=== PATIENT | female | born 1950 | race Caucasian/White ===

== ENCOUNTER → 2017-12-27 | Outpatient (CLI) | payer BC, OTHER ==
[~2017-12-27] MED LIST: ALL180 PO; CALC-51 PO; CYAN100T PO; DIGESTIVE ENZYME PO; FLAX SEED OIL PO; LRT5 PO; MOME50SP5; MULT-513 PO; PSYL55.43 PO; [UNRECOGNIZED DRUG - CODE] PO
== END | disposition home or self-care (01) ==
LOC: C.RDSM 15:19
PROVIDERS: ATTEND Orthopaedic Surgery Sports Medicine
DX: M25.561 Pain in right knee (principal); M25.562 Pain in left knee; M17.0 Bilateral primary osteoarthritis of knee

== ENCOUNTER 2022-05-25 07:55 | Observation (INO) ==
--- NOTE | 2022-05-10 09:28 | PAT Medication Instructions ---
Medication Instructions Date of Service May 10, 2022 Home Medications Medication Instructions Recorded mupirocin 2 % topical ointment 1 applic topical BID #15 grams 07/24/21 ofloxacin 0.3 % ear drops 5 drp otic (ear) BID #5 mL 07/24/21 aspirin 81 mg tablet,delayed release (Aspir-) 81 mg PO QAM atorvastatin 40 mg tablet 40 mg PO HS furosemide 40 mg tablet (Lasix) 40 mg PO QAM lisinopril 20 mg tablet 20 mg PO PM multivitamin 1 tab PO QPM fexofenadine 180 mg tablet 180 mg PO QAM mupirocin 2 % topical ointment 1 applic topical BID ofloxacin 0.3 % ear drops 5 drp otic (ear) BID acetaminophen 500 mg capsule 1,000 mg PO Q6H PRN Pain amoxicillin 875 mg tablet 875 mg PO BID magnesium 250 mg tablet 250 mg PO QPM Continue as directed amoxicillin 875 mg tablet 875 mg PO BID STOP taking 24 hours before surgery mupirocin 2 % topical ointment 1 applic topical BID DO NOT take the morning of surgery furosemide 40 mg tablet (Lasix) 40 mg PO QAM fexofenadine 180 mg tablet 180 mg PO QAM Take morning of surgery With a small sip of water, OTHERWISE NOTHING TO EAT OR DRINK AFTER MIDNIGHT: aspirin 81 mg tablet,delayed release (Aspir-) 81 mg PO QAM (continue as normal unless told otherwise by surgeon) ofloxacin 0.3 % ear drops 5 drp otic (ear) BID acetaminophen 500 mg capsule 1,000 mg PO Q6H PRN Pain (if needed) Take evening before surgery atorvastatin 40 mg tablet 40 mg PO HS lisinopril 20 mg tablet 20 mg PO PM multivitamin 1 tab PO QPM ofloxacin 0.3 % ear drops 5 drp otic (ear) BID acetaminophen 500 mg capsule 1,000 mg PO Q6H PRN Pain (if needed) magnesium 250 mg tablet 250 mg PO QPM Other Notes If you have any questions please call us at [phone] or [phone] or [phone] or [phone]
--- NOTE | 2022-05-11 14:54 | Anesthesiology Consultation ---
Date of Service May 11, 2022 Assessment & Plan (1) Encounter for pre-operative examination: - pt reports severe respiratory distress when around individuals wearing cologne, perfume or scented lotion Mine with OR aware, marked on OR sheet. - potential difficult intubation: TMD < 3 finger breadths, Mallampati 3. - awaiting upcoming PCP pre-op appt 05/19/22. - Outpatient joint assessment: Patient is currently scheduled for inpatient pathway. If re-evaluated pending system levels during current pandemic/surgeon requests outpatient pathway, patient is NOT acceptable candidate for outpatient joint program from anesthesia standpoint. Chart Review Chart Review: Pending: Refer to Additional Notes / Consult section and Patient seen in Pre Admission Testing Teaching & Discussion Pre-Anesthesia Teaching/Discussion Notes: Instructed NPO after midnight before surgery, except medications with 15 cc of water. Medication instructions provided according to the PAT guidelines. History Surgery Operation Date: 05/25/22 10:15 Proposed Procedures p Right Total Knee Arthroplasty - Nguyễn Janey Eastman MD Height/Weight Height: 5 ft 1.5 in Weight: 117.934 kg Allergies Allergy/AdvReac Type Severity Reaction Status Date / Time perfume Allergy Severe Difficulty Verified 05/10/22 07:59 Breathing house dust mite Allergy Intermediate Sneezing Verified 05/10/22 07:59 mold Allergy Intermediate Sneezing Verified 05/10/22 07:59 adhesive AdvReac Mild BANDAIDS - Verified 05/10/22 07:59 MAKE SKIN RAW pineapple AdvReac Mild TONGUE SORE Verified 05/10/22 07:59 Medications Home Medications Medication Instructions Recorded Confirmed Last Taken aspirin 81 mg tablet,delayed 81 mg PO QAM 12/21/19 05/10/22 12/20/19 release (Aspir-) atorvastatin 40 mg tablet 40 mg PO HS 12/21/19 05/10/22 12/27/19 21:00 furosemide 40 mg tablet (Lasix) 40 mg PO QAM 12/21/19 05/10/22 12/27/19 06:00 lisinopril 20 mg tablet 20 mg PO PM 12/21/19 05/10/22 12/27/19 21:00 multivitamin 1 tab PO QPM 12/21/19 05/10/22 12/27/19 06:00 fexofenadine 180 mg tablet 180 mg PO QAM 07/04/20 05/10/22 Unknown mupirocin 2 % topical ointment 1 applic topical BID #15 grams 07/24/21 05/10/22 Unknown ofloxacin 0.3 % ear drops 5 drp otic (ear) BID #5 mL 07/24/21 05/10/22 Unknown acetaminophen 500 mg capsule 1,000 mg PO Q6H PRN Pain 05/10/22 05/10/22 Unknown amoxicillin 875 mg tablet 875 mg PO BID 05/10/22 05/10/22 Unknown magnesium 250 mg tablet 250 mg PO QPM 05/10/22 05/10/22 Unknown Past Medical History Medical History (Updated 05/12/22 @ 08:49 by Jackelin Rain PA-C) 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 GERD (gastroesophageal reflux disease) controlled, stable per pt History of COVID-19 BEGINNING OF APRIL [id number] hospitalized-fully resolved History of uterine cancer SURGERY ONLY Hyperlipidemia Hypertension controlled, stable per pt Obstructive sleep apnea CPAP-compliant Pulmonary nodule evaluated by [facility] pulm 04/07/21, advised no further surveillance needed and to f/u prn Stroke MAR 2018> NO RESIDUAL EFFECTS > JUST FOLLOWS PCP Patient denies h/o seizures, heart attack, heart failure, DM, blood clots or blood transfusions. Exercise / Class Metabolic Activity III < 4 Walking/Shop/Light housework (6 steps in home, denies CP or SOB with those steps) Past Family History Family History Mother Hypertension Heart disease Father Hypertension Heart disease Other No family history of adverse response to anesthesia No family history of bleeding disorder Past Surgical History Surgical History (Updated 05/11/22 @ 15:19 by Jackelin Rain PA-C) History of cholecystectomy History of colonoscopy History of endoscopic sinus surgery 12/28/1920 Grade 2 view with cricoid pressure, MAC 3, ETT 7.5. History of hysterectomy History of myringotomy History of tonsillectomy and adenoidectomy History of tooth extraction Hx of surgical procedure TO SHORTEN TONGUE IN BACK S/P correction of deviated nasal septum Past Anesthesia History No Hx of Anesthesia Complications and No Family Hx of Anesthesia Complications History of PONV No Hx of PONV and Hx of Motion Sickness Social History Smoking Status: Never smoker Do You Dip or Chew Tobacco: No Hx Alcohol Use: No Hx Substance Use: No substance use type: does not use Review of Systems Patient denies chest pain, shortness of breath, dyspnea on exertion, fever, chills, cough, wheezing, or palpitations. Physical Exam Vital Signs Vitals BP 120/71 P 91 TEMP 98.2 SP02 98% on RA RESP 17 Physical Large, thick neck Full cervical extension range of motion without pain TMD < 3 finger breadths Mallampati Score 3 Dentition: intact, several caps/crowns, permanent bridges lower sides bilat; denies chipped or loose teeth, or implants Lungs: normal respiratory effort. Clear throughout to auscultation, no adventitious breath sounds Cardiac: regular rate and rhythm, no murmurs noted Carotid arteries: negative bruit bilat Lab Results Anesthesia Preop Results Results Anesthesia Widget: WBC 8.01 K/ul (4.8-10.8) 05/11/22 Hgb 13.5 g/dl (12.0-16.0) 05/11/22 Hct 40.0 % (34.1-44.9) 05/11/22 Plt 167 K/uL (130-400) 05/11/22 Na 140 mmol/L (136-145) 05/11/22 K 3.6 mmol/L (3.5-5.1) 05/11/22 Cl 107 mmol/L (98-107) 05/11/22 CO2 30 mmol/L (21-32) 05/11/22 BUN 24 mg/dl (6-23) H 05/11/22 Creat 0.85 mg/dl (0.6-1.2) 05/11/22 Glucose Level 130 mg/dl (70-99(Fasting)) H 05/11/22 PT 11.4 Seconds (9.0-12.0) 05/11/22 PTT 29.3 Seconds (21.0-31.0) 05/11/22 INR 1.1 (0.9-1.1) 05/11/22 Urine Color Yellow 05/11/22 Urine Appearance Clear (Clear) 05/11/22 Urine pH 5.5 (4.5-7.5) 05/11/22 Urine Specific [place] 1.028 (1.000-1.030) 05/11/22 Urine Protein Negative (Negative) 05/11/22 Urine Glucose (UA) Negative (Negative) 05/11/22 Urine Ketones Trace (Negative) H 05/11/22 Urine Blood Negative (Negative) 05/11/22 Urine Nitrite Negative (Negative) 05/11/22 Urine Bilirubin Negative (Negative) 05/11/22 Urine Urobilinogen Negative (Negative) 05/11/22 Urine Leukocyte Esterase Negative (Negative) 05/11/22 Blood Type A Negative 05/11/22 Antibody Screen NEGATIVE 05/11/22 Testing Electrocardiogram Date: 05/11/22 NSR, rate 87 bpm Chest X-Ray Date: 05/11/22 There are low lung volumes. Small linear scarlike density within the left midlung zone. Otherwise, no focal lung consolidations to suggest a pneumonia. No evidence for pulmonary edema. The cardiac silhouette is borderline enlarged. This may be accentuated by the low lung volumes. Prior cholecystectomy. IMPRESSION: No acute process. COVID-19 Risk Screen Screening Information COVID-19 Screen Date: 05/11/22 Exposure 21 Days Family/Household +COVID Last 21 Days: No Exposure 10 Days Any COVID Exposure Last 10 Days: No Symptoms Last 10 Days Experienced COVID Sx Last 10 Days: No + COVID 0-90 Days COVID + in Last 0-90 Days: Yes + COVID Test 0-10 Day: No + COVID Test 11-90 Day: Yes Date/Place of COVID-19 Test: + home test 04/2022. Symptoms resolved. PCR at [facility] appt 05/11/22:
[~2022-05-25 07:55] MED LIST changes: +ACETAMINOPHEN 500 MG TAB PO SCH; -ALL180 PO; +BUPIVACAINE 0.25% 30 ML VIAL ONE; +BUPIVACAINE 0.5 % 5 MG/1 ML PF 10ML VIAL ONE; -CALC-51 PO; -CYAN100T PO; +CeleBREX 200 MG CAP PO SCH; -DIGESTIVE ENZYME PO; -FLAX SEED OIL PO; +LIDOCAINE 2% 2 ML VIAL/AMP(20MG/ML) INFIL ONE; +LR 500ML BOLUS, THEN 15ML/HR IV SCH; +LR 60ML/HR IV SCH; -LRT5 PO; +MIDAZOLAM HCL 1 MG/ML 2ML VIAL ONE; -MOME50SP5; -MULT-513 PO; +ONDANSETRON INJ 2 MG/ML 2 ML VIAL ONE; +PROPOFOL IV EMULSION 10 MG/ML 20 ML VIAL IV ONE; -PSYL55.43 PO; +ROPIVACAINE 0.5% 5 MG/ML 30 ML VIAL ONE; +ROPIVACAINE 0.5% HCL/PF 150 MG, BUPIVACAINE 0.75% MPF 20 ML, EPINEPHrine 0.15 MG, Ketor... INFIL SCH; +Scopolamine 1 MG TDSY TD SCH; +TRANEXAMIC ACID 1,000 MG **IV Intra-op IV SCH; +TRANEXAMIC ACID 1,000 MG **IV Pre-op IV SCH; -[UNRECOGNIZED DRUG - CODE] PO; +ceFAZolin 2000MG 2,000 MG/15 ML SYR IV SCH
[2022-05-25] MEDS ORDERED: ePHEDrine sulfate 50 MG/ML AMP IV PRN (09:07)
[2022-05-25] MEDS ORDERED: ONDANSETRON INJ 2 MG/ML 2 ML VIAL IV PRN ×2 (09:07→14:47)
[2022-05-25] MEDS ORDERED: ATROPINE SULFATE 0.1 MG/ML 10ML SYR IV PRN (09:07)
--- NOTE | 2022-05-25 09:17 | History & Physical Bridge Note ---
Date of Service May 25, 2022 History & Physical Bridge Note I have examined the patient, reviewed the History & Physical and in the interval since the performance of the History & Physical I have noted the following changes of clinical significance: no changes noted Patient is aware of the risks, is asymptomatic, and tested negative for COVID- 19.
[2022-05-25] MEDS ORDERED: ORTHO JOINT ANESTHETIC ONE (09:30)
[2022-05-25] MEDS ORDERED: KETAMINE 50 MG/5 ML SYRINGE ONE (10:05)
[2022-05-25] MEDS ORDERED: PHENYLEPHRINE HCL 10 MG/ML VIAL ONE (10:34)
[2022-05-25] MEDS ORDERED: ALBUMIN HUMAN 5% 12.5 GM/250 ML VIAL IV ONE (10:58)
[2022-05-25] MEDS ORDERED: PROPOFOL IV EMULSION 10 MG/ML 20 ML VIAL IV ONE ×2 (11:19→11:59)
--- NOTE | 2022-05-25 12:16 | Post Operative Brief Note ---
Immediate Post Op Note v1 Date of Surgery May 25, 2022 Pre & Post Diagnosis Operation Date: 05/25/22 10:15 Pre-Op Diagnosis: Right Knee Osteoarthritis Post-Op Diagnosis: Right Knee Osteoarthritis I identified the patient and participated in the time-out.: Yes Procedure Operation Date: 05/25/22 10:15 Actual Procedures p Right Total Knee Arthroplasty, Cemented(Right) - Nguyễn Eastman MD Surgeon Nguyễn Eastman MD Environmental Emergencies Planner Dany Martinez PA-C (No fellow avail) Estimated Blood Loss 175 Findings Consistent with Post-Op Diagnosis Fluids 500 cc Albumin & 1700 cc Crystalloid Specimens Right knee Contents Anesthesia Type MAC Spinal Regional Complications none
--- NOTE | 2022-05-25 12:18 | Operative Report ---
Post Operative Report Pre & Post Diagnosis Operation Date: 05/25/22 10:15 Pre-Op Diagnosis: Right Knee Osteoarthritis Post-Op Diagnosis: Right Knee Osteoarthritis I identified the patient and participated in the time-out.: Yes Procedure Operation Date: 05/25/22 10:15 Actual Procedures p Right Total knee replacement, imageless computer assisted navigation - Nguyễn Eastman MD Surgeon Nguyễn Eastman MD Delivery Tech Dany Martinez PA-C (No fellow avail) Estimated Blood Loss 175 Findings See Below Examined Under Anesthesia: ROM -- There was 0 degrees to 100 degrees of flexion Ligamentous examination -- revealed stable Leander, posterior drawer, varus and valgus stress at 0 and 30 degrees. Outerbridge Type IV changes of Tricompartment. Fluids 500 cc Albumin & 1700 cc Crystalloid Specimens Right knee Contents Drains n/a Anesthesia Type MAC Spinal Regional Complications none Indications This is a 71-year-old female who has clinical and radiographic findings consistent with osteoarthritis of the a right knee. I recommended that a right total knee replacement be performed. The patient understands the risks of surgery, which include but not limited to: bleeding, infection, re-operation, damage to nerves and arteries, continued knee pain, knee stiffness, DVT, and . The patient understands all of these instructions and explanations, all of his questions have been satisfactorily addressed and the patient has elected to proceed. Informed consent was signed. Description of Procedure IMPLANTS: 1. Femur: Triathlon #4 Right PS. 2. Tibia: Triathlon #3 [place] with 12 x 50 mm stem. 3. Insert: Triathlon #3 x 11 mm PS X3 poly. 4. Patella: Triathlon A32 x 10 mm X3 poly. 5. Palacos cement. Dany Martinez PA-C is assisting with positioning, retracting, and closure due to fellow not available. Procedure: The patient was taken to the Operating Room and placed in the supine position after spinal and adductor canal nerve block was administered. My initials and a multidisciplinary time-out were used to identify the right leg as the correct operative limb. A tourniquet was placed high in the thigh. Prior to the incision, 2 grams of intravenous Ancef were given. The right leg was then prepped and draped in a standard sterile fashion. An Esmarch was used to exsanguinate the leg and the tourniquet was inflated to 250 mmHg. The planned mid-line 20 cm incision was created exposing the extensor mechanism. The medial parapatellar arthrotomy was made and the patella was everted. The patella was addressed first. It was prepared by reaming from 21 mm down to 11 mm. An A29 button was found to fit best. The peg holes were made in the standard fashion. The femur was addressed next and using computer assisted OrthoAlign with 3 degrees of flexion and 0 degrees of valgus, removing 9 mm in the standard fashion for the distal cut.The cut was made and the 4-in-1 cutting block for a size 4 femur was placed. These cuts and the cuts to place the box were made in the standard fashion. The distal peg were created after testing knee stability with trial components in and using the trial femur as a guide in the standard fashion. Our attention was then drawn to the tibia cut with using imageless computer assisted OrthoAlign, taking 2 mm from the medial low side. A #3 Tibial baseplate fit well. A trial with a 11 mm spacer showed excellent stability in both flexion and extension, with good ligament balance, and thumbs free patellar tracking. Range of motion of 0-120 degrees. The tibial baseplate was prepped for the keel and stem. A longer stem was used due to some areas of soft bone, to avoid subsidence. All components were removed. The tourniquet was deflated. Hemostasis was obtained. 90 ml of total knee cocktail were injected into the soft tissues and periosteum. The tourniquet was left down as bleeding seemed to be less. All surfaces were copiously irrigated prior to placement of the components. The femoral component followed by Tibial baseplate were cemented in place and a 11 mm trial placed. Next, the patellar button was placed using the same cement. Once the cement had cured, the range of motion and stability were unchanged. The 11 mm X3 poly was placed. Again the range of motion and stability were unchanged The extensor mechanism was closed with 1-0 Vicryl and 0 Stratafix with the knee bent approximately 60 degrees in a standard fashion. The peritenon and deep fascia was closed with 2-0 Vicryl. The subcutaneous layer was closed with 3-0 Vicryl. The skin was closed with Zipline and shield. The limb was cleaned and dried. 4x4 dressing was placed over top followed by ABDs, sterile Webril, and a foot to thigh Josue bandage. The patient was then transferred to the Recovery Room in stable condition. The sponge and needle counts were correct. POST-OP INSTRUCTIONS: The patient will be WBAT. The patient will be admitted to the hospital. Labs will be obtained during the stay. DVT prophylaxis will included aspirin for 6 weeks, TEDs, and mechanical foot pumps. The dressing will be changed prior to their discharge or postop day #2 and covered with a Silverlon dressing, whichever comes first as long as the incision as dry. I attest to the content of the Intraoperative Record and any orders documented therein. Any exceptions are noted below.
[2022-05-25] MEDS: fentaNYL citrate 100 MCG/2 ML VIAL IV PRN ×4 (12:49→13:13)
--- NOTE | 2022-05-25 12:49 | Operative Report ---
Post Operative Report Pre & Post Diagnosis Operation Date: 05/25/22 10:15 Pre-Op Diagnosis: Right Knee Osteoarthritis Post-Op Diagnosis: Right Knee Osteoarthritis I identified the patient and participated in the time-out.: Yes Procedure Operation Date: 05/25/22 10:15 Actual Procedures p Right Total Knee Arthroplasty, Cemented(Right) - Nguyễn Eastman MD Surgeon Nguyễn Eastman M.D. Ballistics Teacher Dany Martinez PA-C (No fellow avail) Estimated Blood Loss 175 Findings Consistent with Post-Op Diagnosis DJD right knee Specimens bone and soft tissue Anesthesia Type MAC Spinal Regional Description of Procedure Patient was taken to the operating room, placed under IV sedation with spinal anesthesia and peripheral nerve block. Time out performed, prepped and draped in routine sterile fashion. I was present during the entire case and assisted with positioning, tissue retraction, trialing of implants, cementing of implants, closure and dressings. Please see Dr. Eastman's operative report for further details. Patient was awakened and taken to the recovery room in stable condition. I attest to the content of the Intraoperative Record and any orders documented therein. Any exceptions are noted below.
[2022-05-25 12:51] LABS: iSTAT Creatinine 0.6 mg/dl (0.6-1.3); iSTAT Hemoglobin 8.5 g/dl (12.0-16.0); iSTAT Ionized Calcium 1.1 mmol/l (1.12-1.32); iSTAT Potassium 3.9 mmol/L (3.3-5.0)
--- NOTE | 2022-05-25 13:09 | XRay Report ---
XR knee RT 1 or 2V routine CLINICAL HISTORY: Surgical Post Op TECHNIQUE: 2 views of the right knee were obtained. Comparison: Comparison is made to right knee radiographs 09/10/2021 FINDINGS: Patient is status post total knee arthroplasty with expected postsurgical changes including soft tiss ue swelling and subcutaneous emphysema. No periarticular lucency or hardware fracture is seen. IMPRESSION: Expected postoperative appearance status post placement of total knee arthroplasty. ACT 112: Negative or not required by law. Electronically signed by: Mike Hansen M.D. 05/25/2022 1:08 PM
[2022-05-25] MEDS ORDERED: HYDROmorphone INJ 1 MG/ML SYRINGE ONE (13:20)
[2022-05-25] MEDS: HYDROmorphone INJ 1 MG/ML SYRINGE IV PRN ×4 (13:21→13:36)
[2022-05-25 13:34] LABS: Hematocrit (blood only) 33.8 % (34.1-44.9); Hemoglobin 11.6 g/dl (12.0-16.0)
--- NOTE | 2022-05-25 14:23 | Anesthesiology Progress Note ---
Date of Service May 25, 2022 Anesthesia Post Procedure Vital Signs Vital Signs: Temp Pulse Pulse Resp BP Pulse Ox O2 Del Method 05/25/22 14:20 84 21 102/68 96 Nasal Cannula 05/25/22 14:05 71 15 115/54 L 97 Nasal Cannula 05/25/22 13:55 36.3 C L 79 12 111/60 98 Nasal Cannula 05/25/22 13:45 84 14 102/60 94 Room Air 05/25/22 13:35 84 21 116/62 95 Room Air 05/25/22 13:25 84 13 103/65 93 Room Air 05/25/22 13:15 81 16 113/68 98 Room Air 05/25/22 13:05 81 21 112/69 97 Room Air 05/25/22 12:55 82 15 126/65 99 Room Air 05/25/22 12:45 80 16 126/72 100 Room Air 05/25/22 12:35 36.1 C L 83 12 117/72 97 Oxymask 05/25/22 08:40 36.8 C 97 H 20 145/90 H 99 Room Air O2 Flow Rate 05/25/22 14:20 2 05/25/22 14:05 2 05/25/22 13:55 2 05/25/22 13:45 05/25/22 13:35 05/25/22 13:25 05/25/22 13:15 05/25/22 13:05 05/25/22 12:55 05/25/22 12:45 05/25/22 12:35 5 05/25/22 08:40 Pain Intensity Right Knee: Pain Intensity: 3 Transfer of Care Handoff Completed per policy Notes Mental Status: alert / awake / arousable and participated in evaluation Patient Amnestic to Procedure: Yes Nausea / Vomiting: adequately controlled Pain: adequately controlled Airway Patency, RR, SpO2: stable & adequate BP & HR: stable & adequate Hydration State: stable & adequate Neuraxial Anesthesia: was administered and sensory block is resolving Anesthetic Complications: no major complications apparent and Pt Satisfied with anesthetic care
[2022-05-25] MEDS ORDERED: HYDROmorphone INJ 0.5 MG/0.5 ML SYR IV PRN (14:47)
[2022-05-25] MEDS ORDERED: bisacodyL 10 MG SUPP PR PRN (14:47)
[2022-05-25] MEDS ORDERED: HYDROmorphone INJ 1 MG/ML SYRINGE IV PRN ×3 (14:47)
[2022-05-25] MEDS ORDERED: MAGNESIUM HYDROXIDE SUSP 30 ML UDC PO PRN (14:47)
[2022-05-25] MEDS ORDERED: NALOXONE HCL 0.4 MG/1 ML VIAL/CARP IV PRN (14:47)
[2022-05-25] MEDS: SODIUM CHLORIDE 0.9% 1000ML 1,000 ML IV SCH (16:57)
[2022-05-25] MEDS: Scopolamine CHECK PATCH PLACEMENT SCH ×2 (16:58→23:49)
[2022-05-25] MEDS: FERROUS GLUCONATE 324 MG TAB PO SCH (16:58)
[2022-05-25] MEDS: ACETAMINOPHEN 500 MG TAB PO SCH ×2 (16:58→21:05)
[2022-05-25] MEDS: ASCORBIC ACID 500 MG TAB PO SCH (16:59)
--- NOTE | 2022-05-25 17:30 | Orthopedic Progress Note ---
Date of Service May 25, 2022 Assessment & Plan (1) Osteoarthritis of right knee: Plan: POD #0 s/p R TKA, doing as well as expected. Resume diet. WBAT with walker. OOB to chair. Continue pain control. Check labs tomorrow. DVT prophylaxis: TEDs 3 weeks, foot pumps while in hospital, ASA 81 mg BID for 6 weeks. PT/OT. D/C planning. Present on Admission?: Yes Admission and Anticipated Discharge Date Admission Date: May 25, 2022 Subjective Patient seen in PACU, bed was still not available. Right leg pain Physical Exam Physical Exam: RLE: BCR < 2 sec. Sensation to light touch intact distally. Wiggling ankle and toes. Calf soft and non-tender. Dressing is clean, dry, intact. Able to preform straigh leg raise. Results & Data ([facility]) Vital Signs (Past 12 Hours) Vital Signs Temp Pulse Pulse Resp BP Pulse Ox O2 Del Method 05/25/22 16:05 72 23 129/67 96 Nasal Cannula 05/25/22 15:35 90 15 121/67 98 Nasal Cannula 05/25/22 15:05 83 22 115/71 99 Nasal Cannula 05/25/22 14:50 78 17 113/57 L 97 Nasal Cannula 05/25/22 14:35 72 16 109/66 98 Nasal Cannula 05/25/22 14:20 84 21 102/68 96 Nasal Cannula 05/25/22 14:05 71 15 115/54 L 97 Nasal Cannula 05/25/22 13:55 36.3 C L 79 12 111/60 98 Nasal Cannula 05/25/22 13:45 84 14 102/60 94 Room Air 05/25/22 13:35 84 21 116/62 95 Room Air 05/25/22 13:25 84 13 103/65 93 Room Air 05/25/22 13:15 81 16 113/68 98 Room Air 05/25/22 13:05 81 21 112/69 97 Room Air 05/25/22 12:55 82 15 126/65 99 Room Air 05/25/22 12:45 80 16 126/72 100 Room Air 05/25/22 12:35 36.1 C L 83 12 117/72 97 Oxymask 05/25/22 08:40 36.8 C 97 H 20 145/90 H 99 Room Air O2 Flow Rate 05/25/22 16:05 2 12/20/22 15:35 2 05/25/22 15:05 2 05/25/22 14:50 2 05/25/22 14:35 2 05/25/22 14:20 2 05/25/22 14:05 2 05/25/22 13:55 2 05/25/22 13:45 05/25/22 13:35 05/25/22 13:25 05/25/22 13:15 05/25/22 13:05 05/25/22 12:55 05/25/22 12:45 05/25/22 12:35 5 05/25/22 08:40 Laboratory Results Laboratory Results Hgb 11.6 g/dl (12.0-16.0) L 05/25/22 12:53 POC Hgb 8.5 g/dl (12.0-16.0) L 05/25/22 11:02 Hct 33.8 % (34.1-44.9) L 05/25/22 12:53 POC Hct 25 % (37-47) L 05/25/22 11:02 POC Sodium 132 mmol/L (135-144) L 05/25/22 11:02 POC Potassium 3.9 mmol/L (3.3-5.0) 05/25/22 11:02 POC Chloride 100 mmol/L (101-112) L 05/25/22 11:02 POC Total CO2 19 mmol/L (24-31) L 05/25/22 11:02 POC Anion Gap 17.0 mmol/L (16-25) 05/25/22 11:02 POC BUN 16 mg/dl (7-18) 05/25/22 11:02 POC Creatinine 0.6 mg/dl (0.6-1.3) 05/25/22 11:02 POC Glucose (other) 67 mg/dl (70-99) L* 05/25/22 11:02 POC Ioniz Calcium Evelin 1.10 mmol/l (1.12-1.32) L 05/25/22 11:02 SARS-CoV-2, RNA, NAAT NEGATIVE (NEGATIVE) 05/25/22 Unknown Blood Type A Negative 05/25/22 08:41 Antibody Screen NEGATIVE 05/25/22 08:41 Impressions Knee X-Ray 12/20/22 12:42 XR knee RT 1 or 2V routine CLINICAL HISTORY: Surgical Post Op TECHNIQUE: 2 views of the right knee were obtained. Comparison: Comparison is made to right knee radiographs 09/10/2021 FINDINGS: Patient is status post total knee arthroplasty with expected postsurgical changes including soft tissue swelling and subcutaneous emphysema. No periarticular lucency or hardware fracture is seen. IMPRESSION: Expected postoperative appearance status post placement of total knee arthroplasty. ACT 112: Negative or not required by law. Electronically signed by: Mike Hansen M.D. 05/25/2022 1:08 PM
--- NOTE | 2022-05-25 18:24 | Hospitalist Consultation ---
Date of Consultation May 25, 2022 Assessment & Plan (1) Osteoarthritis of right knee: - s/p R TKA, EBL 175 cc. No complications. POD#0. - Pain/ABX/IVF/diet/drain management/transfusion needs/activity per primary team - Rescue Narcan ordered for over sedation PRN - VTE prophylaxis per primary service- SCDs in place - CBC and BMP in AM. - Baseline renal function: 0.85 12/6 - Baseline Hgb: 13.5 on 12/6, checked today POD#0--> 11.6. Patient reports taking baby aspirin this morning. - Patient is hemodynamically stable, will repeat CBC in AM to monitor Hgb. - Reporting some dizziness/lightheadedness, may be due to aute blood loss, however given the murmur auscultated on exam, will order echocardiogram. (2) Hypertension: - Ideally would hold lisinopril until POD#2, however if hypertensive on POD #1 and renal function at baseline, may resume then. - Takes lasix daily for LE swelling, will also hold this until POD#2 however can give on POD#1 if renal function at baseline and swelling is problematic for patient. (3) GERD (gastroesophageal reflux disease): - Controlled per patient, will add on Protonix given NSAIDs, steroids ordered for surgery. (4) Hyperlipidemia: - Continue atorvastatin. (5) Sleep apnea: - CPAP ordered at night. Supervising Physician Co-Signing Physician Notes I personally saw and examined the patient. I verified all puente points and agree with Penny Pompa PA-C with the following exceptions and/or additions: 71-year-old female POD#0 right TKA. No complications. Estimated blood loss 175 mL. She reports of some confusion about whether to take aspirin prior to surgery and reportedly she has anesthesia notes saying she should take this however her surgeon did not want her to take any aspirin prior to surgery. She did take an aspirin this morning. Mild dizziness is or any complaint. She denies usually having any chest pain, shortness of breath or dizziness on exertion. O/E HS1+2, JAZMÍN LUSB 5/6, Chest CTAB, Abdo SNT, No leg edema. NV intact distal to operation site. A/P Ejection systolic murmur -reportedly heard by her primary care physician although no previous echocardiogram. Given her current dizziness we will arrange for an echocardiogram as an inpatient. Otherwise agree with plan as above History of Present Illness Reason for Consultation: Postop medical management Requesting Physician: Nguyễn Eastman MD Attending Physician: Nguyễn Eastman MD History of Present Illness Rhoda Sands is a 71 y/o female with a past medical history of hypertension, hyperlipidemia, NATHANIEL using CPAP, previous TIA w/o residual effects, GERD, uterine cancer s/p hysterectomy, and osteoarthritis who was admitted today, 05/25 for right TKA with Dr. Eastman after failing outpatient, conservative management. Hospitalist group was consulted for post-operative medication management. Today, she is POD#0 and feels well. She is slightly lightheaded, otherwise denies fever/chills, weakness, chest pain, palpitations, shortness of breath, cough, orthopnea, abdominal pain, nausea, vomiting. Allergies Allergy/AdvReac Type Severity Reaction Status Date / Time perfume Allergy Severe Difficulty Verified 05/10/22 07:59 Breathing house dust mite Allergy Intermediate Sneezing Verified 05/10/22 07:59 mold Allergy Intermediate Sneezing Verified 05/10/22 07:59 adhesive AdvReac Mild BANDAIDS - Verified 05/10/22 07:59 MAKE SKIN RAW pineapple AdvReac Mild TONGUE SORE Verified 05/10/22 07:59 Home Medications Medication Instructions Recorded Confirmed Type atorvastatin 40 mg tablet 40 mg PO HS 12/21/19 05/25/22 History furosemide 40 mg tablet (Lasix) 40 mg PO QAM 12/21/19 05/25/22 History lisinopril 20 mg tablet 20 mg PO PM 12/21/19 05/25/22 History multivitamin 1 tab PO QPM 12/21/19 05/25/22 History fexofenadine 180 mg tablet 180 mg PO QAM 07/04/20 05/25/22 History (Ale Allergy) mupirocin 2 % topical ointment 1 applic topical BID #15 grams 07/24/21 05/25/22 Rx magnesium 250 mg tablet 250 mg PO QPM 05/10/22 05/25/22 History acetaminophen 500 mg tablet 1,000 mg PO Q8 #30 tabs 05/26/22 Rx (Tylenol Extra Strength) ascorbic acid (vitamin C) 500 mg 500 mg PO BIDM 2 weeks #28 tabs 05/26/22 Rx tablet (Vitamin C) aspirin 81 mg tablet,delayed 81 mg PO BID 6 weeks #84 tabs 05/26/22 Rx release docusate sodium 100 mg capsule 100 mg PO BID #20 caps 05/26/22 Rx ferrous gluconate 324 mg (38 mg 324 mg PO BIDM #28 tabs 05/26/22 Rx iron) tablet Patient History Medical History (Updated 05/25/22 @ 18:16 by Penny Pompa PA-C) 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 GERD (gastroesophageal reflux disease) controlled, stable per pt History of COVID-19 BEGINNING OF APRIL [id number] hospitalized-fully resolved History of uterine cancer SURGERY ONLY Hyperlipidemia Hypertension controlled, stable per pt Obstructive sleep apnea CPAP-compliant Osteoarthritis of right knee Pulmonary nodule evaluated by [facility] pulm 04/07/21, advised no further surveillance needed and to f/u prn Stroke MAR 2018> NO RESIDUAL EFFECTS > JUST FOLLOWS PCP Surgical History History of cholecystectomy History of colonoscopy History of endoscopic sinus surgery 12/28/1920 Grade 2 view with cricoid pressure, MAC 3, ETT 7.5. 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 Beliefs That Will Affect Care: None Current Living Situation: Spouse Feels Safe at Home: Yes Assistive Devices: CPAP, Glasses and Walker Review of Systems Review of Systems: Constitutional: slight lightheadedness post-operatively; no fever/chills, weakness, fatigue, myalgias, anorexia, night sweats Eyes: No diplopia, no worsening or blurred vision ENT: normal hearing, no trouble swallowing Respiratory: No cough, sputum, dyspnea at rest or on exertion Cardiovascular: No chest pain, tightness or palpitations Abdomen: No pain, nausea, vomiting, diarrhea or constipation : Denies dysuria, hematuria, increased urgency/frequency, urinary retention Musculoskeletal: No joint pain, calf pain, swelling Neurologic: No weakness, numbness/tingling, or balance problems Psychiatric: No anxiety or depression Skin: No rash or itch Physical Exam Physical Exam: General: awake, alert, no apparent distress Head: Normocephalic, atraumatic ENT: PERRL, EOMI, no pharyngeal exudate, mucous membranes moist Chest: Clear to auscultation, on room air, no adventitious breath sounds Cardiac: murmur appreciated on exam; regular rate and rhythm, no murmur, no JVD, normal peripheral pulses, good capillary refill Abdominal: NABS x 4 quadrants, soft, nontender to palpation, no rebound, guarding or tenderness Extremities: Normal inspection, no peripheral edema or erythema, calfs nontender to palpation Psych: Normal mood and affect Neuro: AAO x 3, strength intact bilaterally and rated 5/5, no motor deficits, speech is clear, no peripheral sensory deficits Skin: no rash or erythema Results & Data Results & Data ([facility]) Vital Signs (Past 12 Hours) Vital Signs Temp Pulse Pulse Resp BP Pulse Ox O2 Del Method 05/25/22 16:20 Room Air 05/25/22 16:20 36.7 C 90 18 119/75 96 Room Air 05/25/22 16:05 72 23 129/67 96 Nasal Cannula 05/25/22 15:35 90 15 121/67 98 Nasal Cannula 05/25/22 15:05 83 22 115/71 99 Nasal Cannula 05/25/22 14:50 78 17 113/57 L 97 Nasal Cannula 05/25/22 14:35 72 16 109/66 98 Nasal Cannula 05/25/22 14:20 84 21 102/68 96 Nasal Cannula 05/25/22 14:05 71 15 115/54 L 97 Nasal Cannula 05/25/22 13:55 36.3 C L 79 12 111/60 98 Nasal Cannula 05/25/22 13:45 84 14 102/60 94 Room Air 05/25/22 13:35 84 21 116/62 95 Room Air 05/25/22 13:25 84 13 103/65 93 Room Air 05/25/22 13:15 81 16 113/68 98 Room Air 05/25/22 13:05 81 21 112/69 97 Room Air 05/25/22 12:55 82 15 126/65 99 Room Air 05/25/22 12:45 80 16 126/72 100 Room Air 05/25/22 12:35 36.1 C L 83 12 117/72 97 Oxymask 05/25/22 08:40 36.8 C 97 H 20 145/90 H 99 Room Air O2 Flow Rate 05/25/22 16:20 05/25/22 16:20 05/25/22 16:05 2 05/25/22 15:35 2 05/25/22 15:05 2 05/25/22 14:50 2 05/25/22 14:35 2 05/25/22 14:20 2 05/25/22 14:05 2 05/25/22 13:55 2 05/25/22 13:45 05/25/22 13:35 05/25/22 13:25 05/25/22 13:15 05/25/22 13:05 05/25/22 12:55 05/25/22 12:45 05/25/22 12:35 5 05/25/22 08:40 Laboratory Results Abnormal lab results 05/25/22 05/25/22 Range/Units 11:02 12:53 Hgb 11.6 L (12.0-16.0) g/dl POC Hgb 8.5 L (12.0-16.0) g/dl Hct 33.8 L (34.1-44.9) % POC Hct 25 L (37-47) % POC Sodium 132 L (135-144) mmol/L POC Chloride 100 L (101-112) mmol/L POC Total CO2 19 L (24-31) mmol/L POC Glucose (other) 67 L* (70-99) mg/dl POC Ioniz Calcium Evelin 1.10 L (1.12-1.32) mmol/l Diagnostic Findings Knee X-Ray 05/25/22 12:42 XR knee RT 1 or 2V routine CLINICAL HISTORY: Surgical Post Op TECHNIQUE: 2 views of the right knee were obtained. Comparison: Comparison is made to right knee radiographs 09/10/2021 FINDINGS: Patient is status post total knee arthroplasty with expected postsurgical changes including soft tissue swelling and subcutaneous emphysema. No periarticular lucency or hardware fracture is seen. IMPRESSION: Expected postoperative appearance status post placement of total knee arthroplasty. ACT 112: Negative or not required by law. Electronically signed by: Mike Hansen M.D. 05/25/2022 1:08 PM PG Care Time/CCT Total # of Minutes Spent Total Time Spent with Patient: Total time spent is greater than 50% in coordination of care (as documented) at patient's floor/unit and/or counseling patient: Coding Level of Care Code 98726 Inpt Consult Level 3 Diagnoses Osteoarthritis of right knee M17.11 Hypertension I10 GERD (gastroesophageal reflux disease) K21.9 Hyperlipidemia E78.5 Sleep apnea G47.30
[2022-05-25] MEDS: ceFAZolin 2000MG 2,000 MG/15 ML SYR IV SCH (18:44)
[2022-05-25] MEDS: oxyCODONE HCL IR 5 MG TAB (IMMEDIATE RELEASE) PO PRN (19:55)
[2022-05-25] MEDS: CeleBREX 200 MG CAP PO SCH (20:16)
[2022-05-25] MEDS: ASPIRIN 81 MG ECTAB PO SCH (20:16)
[2022-05-25] MEDS: DOCUSATE SODIUM 100 MG CAP PO SCH (20:16)
[2022-05-25] MEDS ORDERED: lisinopril 20 MG TAB PO SCH (21:00)
[2022-05-25] MEDS ORDERED: ATORVASTATIN 40 MG TAB PO SCH (21:00)
[2022-05-25] MEDS ORDERED: MAGNESIUM OXIDE 400 MG TAB PO SCH (21:00)
[2022-05-25] MEDS ORDERED: SENNA 8.6 MG TAB PO SCH (21:00)
[2022-05-26] MEDS: SODIUM CHLORIDE 0.9% 1000ML 1,000 ML IV SCH (01:44)
[2022-05-26] MEDS: ceFAZolin 2000MG 2,000 MG/15 ML SYR IV SCH (01:45)
[2022-05-26] MEDS: oxyCODONE HCL IR 5 MG TAB (IMMEDIATE RELEASE) PO PRN ×4 (02:19→15:54)
[2022-05-26] MEDS: ACETAMINOPHEN 500 MG TAB PO SCH ×2 (05:03→14:50)
--- NOTE | 2022-05-26 07:56 | Orthopedic Progress Note ---
Date of Service May 26, 2022 Assessment & Plan (1) Osteoarthritis of right knee: Plan: POD #1 s/p R TKA, doing as well as expected. Resume diet. WBAT with walker. OOB to chair. Continue pain control. Check labs tomorrow. DVT prophylaxis: TEDs 3 weeks, foot pumps while in hospital, ASA 81 mg BID for 6 weeks. PT/OT. D/C planning. Appreciate medicine input. Admission and Anticipated Discharge Date Admission Date: May 25, 2022 Subjective Doing well. Would like to be placed in a facility as she does not have support at home. Physical Exam Physical Exam: RLE: BCR < 2 sec. Sensation to light touch intact distally. Wiggling ankle and toes. Calf soft and non-tender. Dressing is clean, dry, intact. Able to preform straigh leg raise. Results & Data ([facility]) Vital Signs (Past 12 Hours) Vital Signs Temp Pulse Resp BP Pulse Ox O2 Del Method 05/26/22 07:28 36.6 C 70 16 116/56 L 95 Room Air 05/26/22 03:26 36.6 C 61 18 126/80 96 Room Air 05/25/22 23:14 36.6 C 71 18 116/71 96 CPAP Laboratory Results Laboratory Results Hgb 11.6 g/dl (12.0-16.0) L 05/25/22 12:53 POC Hgb 8.5 g/dl (12.0-16.0) L 05/25/22 11:02 Hct 33.8 % (34.1-44.9) L 05/25/22 12:53 POC Hct 25 % (37-47) L 05/25/22 11:02 POC Sodium 132 mmol/L (135-144) L 05/25/22 11:02 POC Potassium 3.9 mmol/L (3.3-5.0) 05/25/22 11:02 POC Chloride 100 mmol/L (101-112) L 05/25/22 11:02 POC Total CO2 19 mmol/L (24-31) L 05/25/22 11:02 POC Anion Gap 17.0 mmol/L (16-25) 05/25/22 11:02 POC BUN 16 mg/dl (7-18) 05/25/22 11:02 POC Creatinine 0.6 mg/dl (0.6-1.3) 05/25/22 11:02 POC Glucose 206 mg/dl (70-99) H 05/25/22 19:56 POC Glucose (other) 67 mg/dl (70-99) L* 05/25/22 11:02 POC Ioniz Calcium Evelin 1.10 mmol/l (1.12-1.32) L 05/25/22 11:02 SARS-CoV-2, RNA, NAAT NEGATIVE (NEGATIVE) 05/25/22 Unknown Blood Type A Negative 05/25/22 08:41 Antibody Screen NEGATIVE 05/25/22 08:41 Impressions Knee X-Ray 05/25/22 12:42 XR knee RT 1 or 2V routine CLINICAL HISTORY: Surgical Post Op TECHNIQUE: 2 views of the right knee were obtained. Comparison: Comparison is made to right knee radiographs 09/10/2021 FINDINGS: Patient is status post total knee arthroplasty with expected postsurgical changes including soft tissue swelling and subcutaneous emphysema. No periarticular lucency or hardware fracture is seen. IMPRESSION: Expected postoperative appearance status post placement of total knee arthroplasty. ACT 112: Negative or not required by law. Electronically signed by: Mike Hansen M.D. 05/25/2022 1:08 PM
[2022-05-26] MEDS ORDERED: dexAMETHasone 4 MG TAB PO SCH (08:00)
[2022-05-26 08:43] LABS: Hematocrit (blood only) 32.7 % (34.1-44.9); Hemoglobin 10.9 g/dl (12.0-16.0); Mean Corpuscular Hemoglobin 32.2 pg (25.0-34.0); Mean Corpuscular Hgb Conc 33.3 g/dL (32.0-36.0); Mean Corpuscular Volume 96.5 fL (80.0-100.0); Mean Platelet Volume 11.4 fL (9.4-12.3); Platelet Count 138 K/uL (130-400); RDW Coefficient of Variation 13.2 % (11.5-14.5); Red Blood Count 3.39 M/uL (3.93-5.22); White Blood Count 9.47 K/ul (4.8-10.8)
[2022-05-26 08:44] LABS: BUN Creatinine Ratio 24.3 (10-20); Calcium 8.4 mg/dl (8.5-10.1); Creatinine Clr Calc Pharmacy 54.9 ml/min; Est GFR (African American) 57.1 ml/min; Est GFR (Non-African American) 49.2 ml/min; Potassium 4.6 mmol/L (3.5-5.1)
[2022-05-26] MEDS ORDERED: FUROSEMIDE 40 MG TAB PO SCH (09:00)
[2022-05-26] MEDS: ASPIRIN 81 MG ECTAB PO SCH (09:00)
[2022-05-26] MEDS ORDERED: PANTOprazole 40 MG TAB PO SCH (09:00)
[2022-05-26] MEDS: CeleBREX 200 MG CAP PO SCH (09:00)
[2022-05-26] MEDS ORDERED: MULTIVITAMIN TAB PO SCH (09:00)
[2022-05-26] MEDS ORDERED: FEXOFENADINE HCL 180 MG TAB PO SCH (09:00)
[2022-05-26] MEDS: DOCUSATE SODIUM 100 MG CAP PO SCH (09:00)
[2022-05-26] MEDS: ASCORBIC ACID 500 MG TAB PO SCH (09:02)
[2022-05-26] MEDS: Scopolamine CHECK PATCH PLACEMENT SCH (09:02)
[2022-05-26] MEDS: FERROUS GLUCONATE 324 MG TAB PO SCH (09:02)
--- NOTE | 2022-05-26 15:32 | Hospitalist Progress Note ---
Date of Service May 26, 2022 Assessment & Plan (1) Osteoarthritis of right knee: Plan: Postoperative labs reviewed and unremarkable. VTE, pain, bowel management per primary orthopedic team. Discharge per primary orthopedic team. (2) Moderate aortic stenosis: Plan: Echocardiogram performed today. Results not available until patient was discharged however she was called and informed of diagnosis. Discharge prior to results due to patient being asymptomatic, TTE performed as she was dizzy yesterday however suspect this was just post operative. Recommend follow-up echocardiogram in 1 year or sooner if she starts to develop symptoms. Will request note sent to her PCP to arrange f/u echo in 1 year. (3) Hypertension: Plan: Can likely resume lisinopril tonight's Lasix tomorrow morning as long as her blood pressure holds. Will defer this to her [facility] physicians. (4) GERD (gastroesophageal reflux disease): Plan: Continue to monitor (5) Hyperlipidemia: Plan: - Continue atorvastatin. (6) Sleep apnea: Plan: - CPAP at bedtime Plan Medically stable for discharge Admission and Anticipated Discharge Date Admission Date: May 25, 2022 Subjective No dizziness, lightheadedness, chest pain or shortness of breath on exertion. She is doing well today and hoping to be discharged to [facility]. Review of Systems Review of Systems: All systems reviewed & are unremarkable except as noted in Subjective Physical Exam Constitutional: WD/WN, vitals as above Respiratory: normal respiratory effort, lungs clear to auscultation Cardiovascular: Rate/Rhythm: regular rate and regular rhythm Heart Sounds: + murmur (JAZMÍN, 4/6, LUSB) Gastrointestinal (Abdomen): normal bowel sounds, soft, nontender, no hepatosplenomegaly Skin: no rashes, warm and dry Psychiatric: A+Ox3, euthymic affect Results & Data Results & Data ([facility]) Vital Signs (Past 12 Hours) Vital Signs Temp Pulse Resp BP Pulse Ox O2 Del Method 05/26/22 07:40 Room Air 05/26/22 07:28 36.6 C 70 16 116/56 L 95 Room Air PG Care Time/CCT Total # of Minutes Spent Total Time Spent with Patient: Total time spent is greater than 50% in coordination of care (as documented) at patient's floor/unit and/or counseling patient: Coding Level of Care Code 50967 Subseq Obs Care Lvl 2 Diagnoses Osteoarthritis of right knee M17.11 Moderate aortic stenosis I35.0 Hypertension I10 GERD (gastroesophageal reflux disease) K21.9 Hyperlipidemia E78.5 Sleep apnea G47.30
--- NOTE | 2022-05-26 15:55 | XCELERA ---
[id number]
--- NOTE | 2022-05-27 07:40 | Discharge Summary ---
Date of Service May 27, 2022 Discharge Data Consultations 05/20/22 12:58 Consult Hospitalist Routine 05/25/22 14:47 Consult Hospitalist Routine Procedures Performed Operation Date: 05/25/22 10:15 Actual Procedures p Right Total Knee Arthroplasty, Cemented(Right) - Nguyễn Eastman MD Hospital Course (1) Moderate aortic stenosis: Patient did have some dizziness so a transechocardiogram was performed on the morning of postoperative day 1. He did show some moderate aortic stenosis and some mild right mitral regurgitation. Ejection fraction of 60 to 65%. This was reviewed by the hospitalist and results were provided to her. Recommended to follow-up with her PCP and repeat echocardiogram in 1 year unless symptoms arise sooner and then a repeat echocardiogram should be performed. (2) Osteoarthritis of right knee: Patient was kept in observation at [facility] after undergoing elective right total knee arthroplasty by Dr. Eastman on May 25, 2022. Her surgery was performed with spinal anesthesia and a peripheral nerve block. She tolerated the procedure well without any intraoperative complications. She did have some blood loss during surgery but did not have any postoperative bleeding complications. She did develop some postoperative dizziness and she was found to have a murmur that she did not know about by the hospitalist. They recommended getting a transesophageal echocardiogram which was performed on May 26, 2022. On postoperative day 1 her dressings were removed and a Silverlon dressing was applied to her right knee. She had very minimal bloody drainage on the dressings. She was seen and evaluated by physical therapy and Occupational Therapy and was allowed to weight-bear as tolerated on her right lower extremity with the assistance of a walker. She was given aspirin 81 mg twice daily along with AV impulse boots and knee-high NASIM stockings for DVT prophylaxis. Her pain was controlled with Tylenol, Celebrex, oxycodone. Her regular home medications were continued. She was given a regular diet. She tolerated that during her inpatient stay as she did not develop any postoperative nausea or vomiting. She did develop acute blood loss anemia but did not require any postoperative blood transfusions and remained asymptomatic except for some mild dizziness. Her echocardiogram results were provided to her today. She was seen and evaluated by case management as she requested inpatient rehab. She was approved for inpatient rehab and a bed was available on May 26 2022. She was deemed safe for discharge by PT and OT. She was discharged to [facility] on May 26, 2022. Discharge instructions were reviewed and patient agreed with the plan. (3) Acute blood loss anemia: Patient did develop acute blood loss anemia from her postoperative total knee arthroplasty. She remained asymptomatic during her inpatient stay and did not require any blood transfusions. This will be monitored as an outpatient.
[2022-05-27] MEDS ORDERED: FUROSEMIDE 40 MG TAB PO SCH (09:00)
[2022-05-27] MEDS ORDERED: lisinopril 20 MG TAB PO SCH (21:00)
== END 2022-05-26 16:10 ==
LOC: ASU 07:55 → PACUINP 07:55 → 3E 16:24